=== PATIENT | male | born 1990 | race Caucasian/White ===

== ENCOUNTER 2016-10-30 11:30 | Emergency (ER) | payer OTHER ==
[2016-10-30 11:36] VITALS: BP 145/84; PULSE 97; TEMP 98; BMI 23.6
--- NOTE | 2016-10-30 12:05 | PDOC ---
History of Present Illness - General Chief Complaint: Loss of Appetite Stated Complaint: INSOMNIA/ UNABLE TO EAT Time Seen by Provider: 10/30/16 11:52 History Source: Patient Exam Limitations: No Limitations - History of Present Illness Initial Comments: 26 yr male presents to ER c/o not sleeping, feeling depressed since breaking up with girlfriend few months ago. Pt denies historyof depression or any previous psychiatric disorder. Pt denies drug or alcohol use. Pt denies suicidal or homicidal thoughts. Pt asking for sleeping medicine to help sleep, not improving with benadryl. Pt saw a psychologist yesterday and his PMD yesterday and was told he needs to see a psychiatrist. Pt does not have name of anyone to see. Severity: mild Associated Symptoms: insomnia Past History - Past Medical History Allergies/Adverse Reactions: Allergies No Known Drug Allergies Allergy (Verified 10/30/16 11:35) Home Medications: Ambulatory Orders Omeprazole [Prilosec] 20 mg PO DAILY 03/11/14 Zolpidem Tartrate [Ambien] 5 mg PO HS PRN #10 tablet MDD 10mg HS 10/30/16 Psychosocial History: Yes: no pertinent history Surgical History: Yes: No Surgical History - Family History Significant Family History: Yes: no pertinent family hx - Immunization History Immunization Up to Date: Yes - Social History Smoking Status: Never smoked Number of Cigarettes Per Day: 0 Cigars Per Day: 0 *Review of Systems - Review of Systems Able to Perform ROS?: Yes Constitutional: Yes: Loss of Appetite Respiratory: No: Symptoms reported Cardiac (ROS): No: Symptoms Reported Psychiatric: Yes: Depression, Sleep Pattern Change, Change in Appetite *Physical Exam - Vital Signs Last Vital Signs Temp Pulse Resp BP Pulse Ox 98 F 97 H 18 145/84 99 10/30/16 11:33 10/30/16 11:33 10/30/16 11:33 10/30/16 11:33 10/30/16 11:33 - Physical Exam General Appearance: Yes: Nourished, Appropriately Dressed HEENT: positive: EOMI, ONEIL, Normal ENT Inspection, TMs Normal, Pharynx Normal Neck: positive: Supple. negative: Tender Respiratory/Chest: positive: Lungs Clear, Normal Breath Sounds Cardiovascular: positive: Regular Rhythm, Regular Rate Gastrointestinal/Abdominal: positive: Normal Bowel Sounds, Soft Musculoskeletal: positive: Normal Inspection Extremity: positive: Normal Capillary Refill, Normal Inspection, Normal Range of Motion Integumentary: positive: Normal Color, Dry, Warm Neurologic: positive: Fully Oriented, Alert, Normal Mood/Affect, Normal Response , Motor Strength 5/5, Other (pt denies feeling worthless, states he is very sad , denies suicidal ideations or attemtps). negative: Depressed Affect *DC/Admit/Observation/Transfer Diagnosis at time of Disposition: Insomnia disorder Qualifiers: Insomnia type: due to other mental disorder Qualified Code(s): F51.05 - Insomnia due to other mental disorder; F99 - Mental disorder, not otherwise specified - Discharge Dispostion Disposition: HOME Condition at time of disposition: Good - Prescriptions Prescriptions: Zolpidem Tartrate [Ambien] 5 mg PO HS PRN #10 tablet MDD 10mg HS PRN Reason: Insomnia - Referrals Referrals: Aura Becerra NP [Primary Care Provider] - Franki Carver MD [Staff Physician] - - Patient Instructions Additional Instructions: please call the psychiatrist for further evaluation please make sure you eat and drink to stay hydrated to avoid getting sick take the prescribed medication for sleep take exactly as prescribed return to ER or call 911 if you have any thoughts of hurting yourself
== END 2016-10-30 12:15 | disposition home or self-care (01) ==
LOC: JERFT 11:30
DX: F51.05 Insomnia due to other mental disorder (principal)
CPT/HCPCS: 99281-25

== ENCOUNTER 2017-08-25 13:42 | Emergency (ER) | payer OTHER ==
[2017-08-25 13:47] VITALS: BP 127/70; PULSE 77; TEMP 98.3; BMI 27.4
[2017-08-25] MEDS ORDERED: IBUPROFEN 600 MG TABLET (FP) PO ONE ×2 (15:13→15:18)
--- NOTE | 2017-08-25 15:17 | PDOC ---
History of Present Illness - General Chief Complaint: Back Pain Stated Complaint: BACK PAIN Time Seen by Provider: 08/25/17 14:50 History Source: Patient Exam Limitations: No Limitations - History of Present Illness Initial Comments: 08/25/17 15:13 States was sitting on a very loose and boggy couch, working on his computer this morning when he stood up and felt an acute onset of pain in his low back. States since that time is resolving without any medications or treatments but felt like he needed to have someone come and evaluate his back pain. Denies fever, numbness or tingling to hands or feet, denies any cough shortness of breath chest pain or palpitations, has had no history of back pain Occurred: reports: this morning Severity: reports: mild Pain Location: reports: back Method of Injury: Yes: unknown Loss of Consciousness: no loss of consciousness Associated Symptoms (Fall): denies symptoms Past History - Travel Traveled outside of the country in the last 30 days: No Close contact w/someone who was outside of country & ill: No - Past Medical History Allergies/Adverse Reactions: Allergies Allergy/AdvReac Type Severity Reaction Status Date / Time No Known Drug Allergies Allergy Verified 08/25/17 13:47 COPD: No GI Disorders: Yes (GERD) - Immunization History Immunization Up to Date: Yes - Suicide/Smoking/Psychosocial Hx Smoking History: Never smoked Number of Cigarettes Smoked Daily: 0 Cigars Per Day: 0 Information on smoking cessation initiated: No Hx Alcohol Use: No Drug/Substance Use Hx: No Substance Use Type: None Review of Systems - Review of Systems Able to Perform ROS?: Yes Is the patient limited Telugu proficient: Yes Constitutional: Yes: See HPI. No: Symptoms Reported, Fever, Loss of Appetite, Malaise HEENTM: Yes: See HPI. No: Symptoms Reported Respiratory: Yes: See HPI. No: Cough, Orthopnea, Shortness of Breath Musculoskeletal: Yes: Symptoms Reported, See HPI, Back Pain, Muscle Pain Integumentary: Yes: See HPI. No: Symptoms Reported, Bruising All Other Systems: Reviewed and Negative *Physical Exam - Vital Signs Last Vital Signs Temp Pulse Resp BP Pulse Ox 98.3 F 77 19 127/70 99 08/25/17 13:45 08/25/17 13:45 08/25/17 13:45 08/25/17 13:45 08/25/17 13:45 - Physical Exam General Appearance: Yes: Nourished, Appropriately Dressed. No: Apparent Distress HEENT: positive: ONEIL, Normal ENT Inspection, TMs Normal, Pharynx Normal Neck: positive: Supple. negative: Tender, Lymphadenopathy (R), Lymphadenopathy (L) Respiratory/Chest: positive: Lungs Clear, Normal Breath Sounds Gastrointestinal/Abdominal: positive: Soft. negative: Tender Musculoskeletal: positive: Normal Inspection. negative: CVA Tenderness, Decreased Range of Motion, Muscle Spasm (no bone tenderness, no paravertebral spinous musculature tenderness, range of motion is full, able to bend at waist without any reproduce pain. No palpable spasm or any defect noted to the back.) Extremity: positive: Normal Capillary Refill, Normal Inspection, Normal Range of Motion. negative: Tender Integumentary: positive: Normal Color, Dry, Warm Neurologic: positive: bell maker II-XII NML intact, Fully Oriented, Alert, Normal Mood/ Affect, Normal Response, Motor Strength 5/5 Progress Note - Progress Note Progress Note: Temporary back strain, resolving we'll treat with NSAIDs *DC/Admit/Observation/Transfer Diagnosis at time of Disposition: Strain of mid-back Qualifiers: Encounter type: initial encounter Qualified Code(s): S29.012A - Strain of muscle and tendon of back wall of thorax, initial encounter - Discharge Dispostion Disposition: HOME Condition at time of disposition: Stable Admit: No - Referrals Referrals: Yaquelin Rockwell MD [Primary Care Provider] - - Patient Instructions Printed Discharge Instructions: DI for Back Strain or Sprain Additional Instructions: Rest, no heavy lifting or exercise until pain is resolved Hot soaks to neck and low back as often as possible/hot showers or Jacuzzis No massage or therapy until spasm is gone Continue ibuprofen 2-200 mg tablets every 6 hours for the next 3 days then as needed for pain and swelling If not significant improvement within 24 hours with medication and rest regime, followup with private physician for change in medications and /or therapy. - Post Discharge Activity
== END 2017-08-25 15:19 | disposition home or self-care (01) ==
LOC: JERFT 13:42
DX: S29.012A Strain of muscle and tendon of back wall of thorax, initial encounter (principal); X50.1XXA Overexertion from prolonged static or awkward postures, initial encounter; Y93.89 Activity, other specified; Y92.038 Other place in apartment as the place of occurrence of the external cause; Y99.8 Other external cause status
CPT/HCPCS: 99281-25